=== PATIENT | male | born 1950 | race Hispanic/Latino ===

== ENCOUNTER → 2018-09-06 | Outpatient (CLI) | payer OTHER, MEDICARE | END | disposition home or self-care (01) | LOC: RAH 12:34 | PROVIDERS: ATTEND Internal Medicine | DX: I77.9 Disorder of arteries and arterioles, unspecified (principal) | CPT/HCPCS: 93925 ==

== ENCOUNTER → 2018-11-10 | Outpatient (CLI) | payer OTHER, MEDICARE | END | disposition home or self-care (01) | LOC: RAH 08:02 | PROVIDERS: ATTEND Internal Medicine | DX: I77.9 Disorder of arteries and arterioles, unspecified (principal); Z87.891 Personal history of nicotine dependence | CPT/HCPCS: 76775 ==